=== PATIENT | male | born 1940 | race Caucasian/White ===

== ENCOUNTER 2016-08-04 10:19 | Inpatient (IN) | payer MEDICARE, OTHER ==
[~2016-08-04] VITALS: Ht 177.8 cm; Wt 100.0 kg
[~2016-08-04 10:19] MED LIST: ACET-2047 PO; DABI150C PO; DOCU-144 PO; FER325 PO; FOLI-49 PO; FURO40TA4 PO; GABA100C PO; LISI2.5T59 PO; PANT40TA3 PO; POTA20TA96 PO; RIS1 PO; TAMS-14 PO; TRAM-40 PO
[2016-08-04 10:24] VITALS: Ht 177.8 cm; Wt 100.0 kg
[2016-08-04 10:50] LABS: ADD UMIC YES; URINE BILIRUBIN (Dip) NEGATIVE (NEGATIVE); URINE BLOOD (Dip) 2+ (NEGATIVE); URINE COLOR YELLOW (YELLOW); URINE GLUCOSE (Dip) NEGATIVE (NEGATIVE); URINE KETONES (Dip) NEGATIVE (NEGATIVE); URINE LEUKOCYTE ESTERASE (Dip) 3+ (NEGATIVE); URINE NITRITE (Dip) POSITIVE (NEGATIVE); URINE TOTAL PROTEIN (Dip) NEGATIVE (NEGATIVE); URINE UROBILINOGEN (Dip) 0.2 E.U./dL (0.1-1.0)
[2016-08-04 11:09] LABS: BACTERIA,URINE MODERATE
[2016-08-04] MEDS ORDERED: ASPI81TA3 PO (11:11)
[2016-08-04] MEDS ORDERED: CARV3.1260 PO (11:11)
[2016-08-04] MEDS ORDERED: ASCO500C7 PO (11:11)
[2016-08-04] MEDS ORDERED: CARV6.2579 PO (11:14)
[2016-08-04] MEDS ORDERED: BISA10SU75 PR (11:15)
[2016-08-04] MEDS ORDERED: ENOX40DI2 SC (11:16)
[2016-08-04] MEDS ORDERED: FURO20TA3 PO (11:17)
[2016-08-04] MEDS ORDERED: ISOS30TA5 PO (11:18)
[2016-08-04] MEDS ORDERED: LORA0.5T PO (11:19)
[2016-08-04 11:20] LABS: ADD SCAN DIFF NO
[2016-08-04] MEDS ORDERED: IRON150C PO (11:20)
[2016-08-04] MEDS ORDERED: PROT946L PO (11:23)
[2016-08-04 11:26] LABS: BASOPHILS % 0.2 % (0.0-2.0); EOSINOPHILS # 0.1 10^3/ul (0.0-0.5); EOSINOPHILS % 1.9 % (0.0-7.0); HEMATOCRIT 30.9 % (42.0-52.0); HEMOGLOBIN 9.6 g/dl (14.0-18.0); LYMPHOCYTES # 0.9 10^3/ul (0.8-2.9); LYMPHOCYTES % 16.5 % (15.0-51.0); MEAN CORPUSCULAR HEMOGLOBIN 27.7 pg (29.0-33.0); MEAN CORPUSCULAR HGB CONC 31.1 g/dl (32.0-37.0); MEAN CORPUSCULAR VOLUME 89.3 fl (82.0-101.0); MEAN PLATELET VOLUME 9.9 fl (7.4-10.4); MONOCYTE # 0.6 10^3/ul (0.3-0.9); MONOCYTES % 12.3 % (0.0-11.0); NEUTROPHIL # 3.6 10^3/ul (1.6-7.5); NEUTROPHILS % 68.7 % (39.0-77.0); PLATELET COUNT 245 10^3/UL (140-415); RED BLOOD COUNT 3.46 10^6/ul (4.70-6.10); RED CELL DISTRIBUTION WIDTH 14.8 % (11.5-14.5); WHITE BLOOD COUNT 5.2 10^3/ul (4.8-10.8)
[2016-08-04 11:38] LABS: ALBUMIN 3.5 g/dl (3.3-4.9)
[2016-08-04 11:39] LABS: CHLORIDE 96 mmol/L (97-110); POTASSIUM 4.2 mmol/L (3.5-5.1); SODIUM 133 mmol/L (135-144)
[2016-08-04 11:41] LABS: ASPARTATE AMINO TRANSFERASE 15 IU/L (15-46); BILIRUBIN,INDIRECT 0.3 mg/dl (0-1.1); BILIRUBIN,TOTAL 0.3 mg/dl (0.2-1.3); CARBON DIOXIDE 26 mmol/L (21-31); TOTAL PROTEIN 7.4 g/dl (6.1-8.1)
[2016-08-04 11:42] LABS: ALANINE AMINOTRANSFERASE 17 IU/L (13-69); ALBUMIN/GLOBULIN RATIO 0.89; ALKALINE PHOSPHATASE 83 IU/L (42-121); ANION GAP 15 (8-16); BLOOD UREA NITROGEN 15 mg/dl (7-20); CALCIUM 8.6 mg/dl (8.4-10.2); GLUCOSE 138 mg/dl (70-220)
[2016-08-04 11:54] LABS: B-TYPE NATRIURETIC PEPTIDE 678 PG/ML (0-450); TROPONIN-I < 0.012 ng/ml (0.00-0.12)
[2016-08-04] MEDS ORDERED: CEFEPIME 1GM/50 ML (PMX) 50 ML IVPB ONE (12:00)
--- NOTE | 2016-08-04 12:05 | ERA ---
ER Documentation Chief Complaint Date/Time DATE: 08/04/16 TIME: 12:00 Chief Complaint BIB PARAMEDICS FROM [facility]- LOW SODIUM LEVEL HPI 75-year-old man brought in by EMS from senior living for hyponatremia. Patient has multiple medical conditions including recurrent hyponatremia. It seems patient has become more agitated recently and generally confused. He has had no focal weakness, no fevers or chills, no vomiting or diarrhea. HPI was supplemented by reviewing senior living records, reviewing past medical history, and speaking to EMS. ROS All systems reviewed and are negative except as per history of present illness. Medications Home Meds Reported Medications Protein Supplement (Promod) 946 Ml Liquid, 30 ML PO TID 08/04/16 Iron Polysaccharides Complex (Polysaccharide Iron) 150 Mg Capsule, 150 MG PO DAILY, CAP 08/04/16 Lorazepam* (Lorazepam*) 0.5 Mg Tablet, 0.5 MG PO BID Y for ANXIETY, TAB 08/04/16 Isosorbide Mononitrate* (Isosorbide Mononitrate*) 30 Mg Tab.er.24h, 30 MG PO DAILY, TAB 08/04/16 Furosemide* (Furosemide*) 20 Mg Tablet, 20 MG PO DAILY, #60 TAB 08/04/16 Bisacodyl* (Bisacodyl*) 10 Mg Supp, 10 MG NV Q24H Y for CONSTIPATION, SUPP 08/04/16 Carvedilol* (Carvedilol*) 6.25 Mg Tablet, 6.25 MG PO BID, #60 TAB HOLD IF SBP<110 OR HR<60 08/04/16 Aspirin* (Aspirin* Chew) 81 Mg Tab.chew, 81 MG PO DAILY, TAB.CHEW 08/04/16 Ascorbic Acid* (Vitamin C*) 500 Mg Capsule.sa, 500 MG PO DAILY, CAP 08/04/16 Lisinopril* (Lisinopril*) 2.5 Mg Tablet, 2.5 MG PO DAILY, #30 TAB HOLD IF SBP<110 OR HR<60 03/20/16 Risperidone* (Risperdal*) 1 Mg Tablet, 1.5 MG PO BID, TAB 08/31/15 Pantoprazole* (Protonix*) 40 Mg Tablet.dr, 40 MG PO AC BREAKFAST, TAB 08/31/15 Dabigatran Etexilate Mesylate* (Pradaxa*) 150 Mg Capsule, 150 MG PO BID, CAP 08/31/15 Potassium Chloride* (Potassium Chloride*) 20 Meq Tablet.er, 20 MEQ PO DAILY, TAB.SA 08/31/15 Folic Acid* (Folic Acid*) 1 Mg Tablet, 1 MG PO DAILY, TAB 08/31/15 Tamsulosin Hcl* (Flomax*) 0.4 Mg Cap.er.24h, 0.4 MG PO HS, CAP 08/31/15 Ferrous Sulfate* (Ferrous Sulfate*) 325 Mg Tabec, 325 MG PO BID, TAB 08/31/15 Docusate Sodium* (Colace*) 100 Mg Capsule, 100 MG PO BID Y for CONSTIPATION, # 60 CAP 08/31/15 Acetaminophen* (Acetaminophen*) 650 Mg Tablet, 650 MG PO Q4 Y for PAIN AND OR ELEVATED TEMP, #30 TAB 08/31/15 Discontinued Reported Medications Enoxaparin Sodium* (Enoxaparin Sodium*) 40 Mg/0.4 Ml Syringe, 40 MG SC DAILY, SYR 08/04/16 Carvedilol* (Carvedilol*) 3.125 Mg Tablet, 3.125 MG PO BID, #60 TAB 08/04/16 Furosemide* (Furosemide*) 40 Mg Tablet, 40 MG PO DAILY, TAB 03/20/16 Tramadol Hcl* (Ultram*) 50 Mg Tablet, 50 MG PO Q8, TAB 08/31/15 Gabapentin* (Neurontin*) 100 Mg Capsule, 100 MG PO TID, #90 CAP 08/31/15 Allergies Allergies: Coded Allergies: No Known Allergy (Unverified , 08/04/16) PMhx/Soc Coronary artery disease, atrial fibrillation, anemia, dementia, psychiatric illness, hypertension, congestive heart failure, gastroesophageal reflux disease , recurrent urinary tract infections History of Surgery: No Anesthesia Reaction: No Hx Respiratory Disorders: No Hx Alcohol Use: No Hx Substance Use: No Hx Tobacco Use: No Smoking Status: Never smoker FmHx Family History: No diabetes Physical Exam Vitals Vital Signs Date Time Temp Pulse Resp B/P Pulse Ox O2 Delivery O2 Flow Rate FiO2 08/04/16 13:10 76 19 134/75 98 Room Air 08/04/16 10:24 97.7 77 18 134/75 98 Physical Exam GENERAL: Well-developed, well-nourished, well-hydrated, afebrile, agitated HEENT: Moist mucous membranes, pink conjunctiva, no cervical spine tenderness or step-off deformities, no goiter, no jaundice or icterus, extraocular movements intact without pain. No submandibular induration, and no pharyngeal erythema NEURO: Alert and oriented x 1, pupils equal round reactive to light, no focal deficits or facial asymmetry, able to answer simple questions and follow simple commands. CARDIAC: Regular rate and rhythm, no murmurs rubs or gallops LUNGS: Clear bilaterally no wheezing crackles or stridor ABDOMEN: Soft nontender, no guarding, no rigidity, no rebound, no psoas sign no obturator sign. Normoactive bowel sounds SKIN: Warm and dry to touch, no abrasions, contusions, or hematomas, no lacerations, no ecchymosis, no target lesions, and without ulcers EXTREMITIES: No clubbing cyanosis, 3+ pitting edema in the lower extremities bilaterally calves are bilaterally symmetrical, no Homans sign, no popliteal cord sign. Distal pulses equal and bilateral PSYCH: Demented, agitated Result Diagram: 08/04/16 1105 08/04/16 1105 Results 24 hrs Laboratory Tests Test 08/04/16 10:33 08/04/16 11:05 Urine Color YELLOW Urine Clarity SLIGHTLY CLOUDY Urine pH 7.5 Urine Specific [place]in <=1.005 Urine Ketones NEGATIVE Urine Nitrite POSITIVE Urine Bilirubin NEGATIVE Urine Urobilinogen 0.2 E.U./dL Urine Leukocyte Esterase 3+ Urine Microscopic RBC 5-10/HPF Urine Microscopic WBC 10-25/HPF Urine Bacteria MODERATE Urine Hemoglobin 2+ Urine Glucose NEGATIVE% Urine Total Protein NEGATIVE White Blood Count 5.210^3/ul Red Blood Count 3.4610^6/ul Hemoglobin 9.6g/dl Hematocrit 30.9% Mean Corpuscular Volume 89.3fl Mean Corpuscular Hemoglobin 27.7pg Mean Corpuscular Hemoglobin Concent 31.1g/dl Red Cell Distribution Width 14.8% Platelet Count 01823^3/UL Mean Platelet Volume 9.9fl Neutrophils % 68.7% Lymphocytes % 16.5% Monocytes % 12.3% Eosinophils % 1.9% Basophils % 0.2% Nucleated Red Blood Cells % 0.0/100WBC Neutrophils # 3.610^3/ul Lymphocytes # 0.910^3/ul Monocytes # 0.610^3/ul Eosinophils # 0.110^3/ul Basophils # 0.010^3/ul Nucleated Red Blood Cells # 0.010^3/ul Sodium Level 133mmol/L Potassium Level 4.2mmol/L Chloride Level 96mmol/L Carbon Dioxide Level 26mmol/L Anion Gap 15 Blood Urea Nitrogen 15mg/dl Creatinine 0.80mg/dl Glucose Level 138mg/dl Calcium Level 8.6mg/dl Total Bilirubin 0.3mg/dl Direct Bilirubin 0.00mg/dl Indirect Bilirubin 0.3mg/dl Aspartate Amino Transf (AST/SGOT) 15IU/L Alanine Aminotransferase (ALT/SGPT) 17IU/L Alkaline Phosphatase 83IU/L Troponin I < 0.012ng/ml B-Type Natriuretic Peptide 678PG/ML Total Protein 7.4g/dl Albumin 3.5g/dl Globulin 3.90g/dl Albumin/Globulin Ratio 0.89 Lipase 30U/L Current Medications Medications (Trade) Dose Ordered Sig/Bennie Route PRN Reason Start Time Stop Time Status Last Admin Dose Admin Cefepime HCl (Maxipime 1gm/50 ml (Pmx)) 50 ml @ 100 mls/hr ONCE ONCE IVPB 08/04/16 12:00 08/04/16 12:29 DC 08/04/16 11:56 Procedures/MDM IV line was established patient was placed on campus monitor rhythm strip revealed a wide-complex rhythm at about 70 bpm with upright P and T waves. Patient was afebrile. EKG performed, read by me revealed an atrial fibrillation rate controlled a 72 bpm, normal axis, with a right bundle branch block QRS duration of 182 ms, no concerning ST elevations or depressions noted. One view chest x-ray performed, read by me revealed cardiomegaly and bilateral pulmonary vascular congestion, no acute infiltrates, no pneumothorax. CBC is unremarkable, electrolytes revealed BUN/creatinine 15/0.8, liver function tests are normal, troponin was negative. Urine analysis was positive for infection. I treated him here with cefepime 1 g IV. Patient's mental status has decompensated recently and I suspect it is secondary to an acute urinary tract infection. Patient will require admission for continued IV antibiotics and reevaluation. Departure Diagnosis: Primary Impression: UTI (urinary tract infection) Qualified Code: N30.00 - Acute cystitis without hematuria Additional Impressions: Encephalopathy Peripheral edema Condition: Fair MARVIN LU MD Aug 04, 2016 12:05
--- NOTE | 2016-08-04 12:20 | RADRPT ---
PROCEDURE: Chest Radiograph. CLINICAL INDICATION: Abdominal pain. TECHNIQUE: Single frontal chest radiograph. COMPARISON: Chest radiograph 03/20/2016 FINDINGS: The patient is moderately rotated. The heart is enlarged. Atherosclerotic calcifications are prese nt. Lung volumes are decreased in there is basilar atelectasis and central compressive change. No c onfluent or lobar infiltrate is seen. There is a 4.5 cm rounded opacity in the right medial apex wi th suggested associated tracheal deviation highly concerning for mass. The bones are intact. IMPRESSION: 1. 4.5 cm rounded opacity in the right pulmonary apex suggesting mass. Recommend further evaluatio n with CT chest. 2. Low lung volumes with basilar atelectasis. 3. Cardiomegaly and atherosclerotic vascular disease. RPTAT: KK .Arnol Banegas MD, MD Date Time Electronically viewed and signed by .Arnol Banegas MD, MD on 08/04/2016 12:20 .B/
[2016-08-04 14:46] VITALS: BP 122/69; PULSE 78; RESP 16
[2016-08-04] MEDS ORDERED: GABA100C PO (15:26)
[2016-08-04] MEDS ORDERED: NIF150 PO (15:27)
[2016-08-04] MEDS ORDERED: DOCUSATE SODIUM 100 MG CAP PO PRN (16:00)
[2016-08-04] MEDS ORDERED: BISACODYL 10 MG SUPP PR PRN (16:00)
[2016-08-04] MEDS: CEFTRIAXONE 1 GM/50 ML (PMX) 50 ML IVPB SCH (16:18)
[2016-08-04] MEDS ORDERED: LORAZEPAM 2 MG INJ IV PRN (16:30)
[2016-08-04] MEDS ORDERED: ACETAMINOPHEN 500 MG TAB PO PRN (16:30)
[2016-08-04] MEDS: FERROUS SULFATE (EC) 325 MG TAB PO SCH (22:46)
[2016-08-04] MEDS: GABAPENTIN 100 MG CAP PO SCH (22:46)
[2016-08-04] MEDS: TAMSULOSIN (SR) 0.4 MG CAP PO SCH (22:46)
[2016-08-04] MEDS: RISPERIDONE 1 MG TAB PO SCH (22:47)
[2016-08-04] MEDS: DABIGATRAN 150 MG CAP PO SCH (22:51)
[2016-08-05] MEDS: PANTOPRAZOLE (EC) 40 MG TAB PO SCH (07:30)
[2016-08-05 08:04] VITALS: BP 126/68; RESP 20
[2016-08-05] MEDS: LISINOPRIL 5 MG TAB PO SCH (08:28)
[2016-08-05] MEDS: FERROUS SULFATE (EC) 325 MG TAB PO SCH ×2 (08:28→22:30)
[2016-08-05] MEDS: DABIGATRAN 150 MG CAP PO SCH ×2 (08:28→22:30)
[2016-08-05] MEDS: GABAPENTIN 100 MG CAP PO SCH ×3 (08:28→22:30)
[2016-08-05] MEDS: RISPERIDONE 1 MG TAB PO SCH ×2 (08:28→22:30)
--- NOTE | 2016-08-05 09:11 | HP ---
DATE OF ADMISSION: 08/04/2016 CHIEF COMPLAINT AND HISTORY OF PRESENT ILLNESS: The patient is a 75-year-old gentleman with a histo ry of coronary artery disease, chronic atrial fibrillation, inguinal scrotal hernia, hypertension, b ipolar disorder, chronic congestive heart failure, a history of ureteral stricture. The patient als o has a history of benign prostatic hypertrophy. The patient was sent from a convalescent home due to altered mental status. The patient appeared confused. The patient recently had a sodium of 127 at the convalescent home. The patient did not have any seizure, no reported vomiting, no reported c hest congestion. The patient did not have any headache. No reported focal weakness. Patient was a wake and alert; however, was more agitated and confused. The patient underwent multiple diagnostic studies in the ER including labs. Sodium, however, came back as 133. The patient also was noted to be anemic, with a hemoglobin of 9.6. There was no history of bleeding. Urine was suggestive of a urinary tract infection, with 3+ leukocyte esterase, 10 to 25 WBCs, and positive nitrites. The jonatan ent is being admitted for further evaluation and management. REVIEW OF SYSTEMS: Twelve systems were reviewed, all pertinent positive and negative findings are d escribed in the HPI. In addition, the patient did not have any chest congestion. The patient was b reathing comfortably. There is no leg edema. Patient did not complain of pain or inguinal scrotal swelling. The patient denied any abdominal pain and no flank pain. The rest of the review of syste ms were unremarkable. PAST MEDICAL HISTORY: As stated above. In addition, the patient was seen by Dr. Morales from a uro logy standpoint due to urethral stricture and also by Dr. Wilkerson. Patient, however, refused surgica l intervention of his large inguinal scrotal swelling. PAST SURGICAL HISTORY: Could not be obtained. SOCIAL HISTORY: The patient is a resident of a [facility] facility. No smoking, no alcohol. ALLERGIES: NONE. MEDICATIONS: List revealed the patient to be on: 1. Flomax. 2. . 3. Lisinopril. 4. Gabapentin. 5. Risperdal. 6. Lasix. 7. Potassium. 8. Protonix. FAMILY HISTORY: Noncontributory to the patient's condition. PHYSICAL EXAMINATION: GENERAL: The patient is conscious, awake, alert, oriented x1. VITAL SIGNS: Temperature 97.5, pulse 78, respirations 16, blood pressure 122/69, O2 saturation 100% on room air. HEENT: Atraumatic, normocephalic. Conjunctivae and lids are normal. Oropharynx is clear. NECK: No mass or thyromegaly. CHEST: Revealed a 4.5-cm round in the right pulmonary apex, suggesting a mass. HEART: Irregular rhythm. Variable S1. No murmur. ABDOMEN: Soft, nondistended, nontender. Large right inguinal hernia present, nontender. No change in color. SKIN: No change in temperature. IMPRESSION: 1. Acute encephalopathy, possibly due to a urinary tract infection. 2. Lung mass. 3. Coronary artery disease. 4. Chronic atrial fibrillation. 5. Benign prostatic hypertrophy. 6. Urethral stricture. 7. Bipolar disorder. 8. Preserved LV function. The patient's echo revealed an EF of 60% back in 2016. 9. Hyponatremia. PLAN: Patient is admitted on the medical floor. Patient will be started on IV Rocephin. He will b e continued on lisinopril for hypertension, Pradaxa for prophylaxis. The patient's heart rate is controlled. Will continue to monitor. Patient will be continued on Risperdal for bipolar disor gino, as well as Augmentin. Will continue Flomax for BPH. Will hold off on Lasix. Will order a CT of the chest without contrast to further assess the lung mass. Further recommendations will depend on the patient's hospital course. Will do a followup basic meta bolic panel. The patient's hyponatremia could be related to Lasix or could be due to lung malignancy . Will continue to follow closely and order appropriate workup as needed. Plan of care discussed with ER physician, Dr. Spence, as well as the nursing staff. Dictated By: DAT ORDONEZ/TERRELL Conf#: [id number] DID#: [id number]
[2016-08-05 11:12] LABS: ADD SCAN DIFF NO
[2016-08-05 11:15] LABS: BASOPHILS % 0.4 % (0.0-2.0); EOSINOPHILS # 0.1 10^3/ul (0.0-0.5); EOSINOPHILS % 2.4 % (0.0-7.0); HEMATOCRIT 32.8 % (42.0-52.0); HEMOGLOBIN 10.3 g/dl (14.0-18.0); LYMPHOCYTES # 0.7 10^3/ul (0.8-2.9); LYMPHOCYTES % 13.8 % (15.0-51.0); MEAN CORPUSCULAR HEMOGLOBIN 28.1 pg (29.0-33.0); MEAN CORPUSCULAR HGB CONC 31.4 g/dl (32.0-37.0); MEAN CORPUSCULAR VOLUME 89.4 fl (82.0-101.0); MONOCYTE # 0.6 10^3/ul (0.3-0.9); MONOCYTES % 11.4 % (0.0-11.0); NEUTROPHIL # 3.7 10^3/ul (1.6-7.5); NEUTROPHILS % 71.6 % (39.0-77.0); PLATELET COUNT 247 10^3/UL (140-415); RED BLOOD COUNT 3.67 10^6/ul (4.70-6.10); RED CELL DISTRIBUTION WIDTH 14.7 % (11.5-14.5); WHITE BLOOD COUNT 5.1 10^3/ul (4.8-10.8)
[2016-08-05 11:26] LABS: POTASSIUM 3.9 mmol/L (3.5-5.1)
[2016-08-05 11:29] LABS: CALCIUM 8.8 mg/dl (8.4-10.2); CREATININE 0.79 mg/dl (0.61-1.24)
--- NOTE | 2016-08-05 12:38 | PN ---
Date/Time of Note Date/Time of Note DATE: 08/05/16 TIME: 12:37 Assessment/Plan VTE Prophylaxis VTE Prophylaxis Intervention: other Lines/Catheters IV [facility]from [facility]): Saline Lock Urinary Cath still in place: No Assessment/Plan Chief Complaint/Hosp Course 1. Acute encephalopathy, possibly due to a urinary tract infection. 2. Lung mass. 3. Coronary artery disease. 4. Chronic atrial fibrillation. 5. Benign prostatic hypertrophy. 6. Urethral stricture. 7. Bipolar disorder. 8. Preserved LV function. The patient's echo revealed an EF of 60% back in 2016. 9. Hyponatremia. Problems: Subjective 24 Hr Interval Summary Free Text/Dictation Patient refusing treatment Exam/Review of Systems Vital Signs Vitals Vital Signs Date Time Temp Pulse Resp B/P Pulse Ox O2 Delivery O2 Flow Rate FiO2 08/05/16 08:04 94 20 126/68 99 08/04/16 14:46 97.5 Room Air Intake and Output 08/04/16 08/04/16 08/05/16 15:00 23:00 07:00 Intake Total 290 ml 120 ml Output Total 400 ml 600 ml Balance -110 ml -480 ml Exam Constitutional: well developed Head: atraumatic, normocephalic Neck: supple Respiratory: diminished breath sounds Cardiovascular: regular rate and rhythm Gastrointestinal: non-tender, soft Extremities: normal pulses Results Result Diagram: 08/05/16 1056 08/05/16 1056 Results 24 hrs Laboratory Tests Test 08/05/16 10:56 White Blood Count 5.1 Red Blood Count 3.67 L Hemoglobin 10.3 L Hematocrit 32.8 L Mean Corpuscular Volume 89.4 Mean Corpuscular Hemoglobin 28.1 L Mean Corpuscular Hemoglobin Concent 31.4 L Red Cell Distribution Width 14.7 H Platelet Count 247 Mean Platelet Volume 10.0 Neutrophils % 71.6 Lymphocytes % 13.8 L Monocytes % 11.4 H Eosinophils % 2.4 Basophils % 0.4 Nucleated Red Blood Cells % 0.0 Neutrophils # 3.7 Lymphocytes # 0.7 L Monocytes # 0.6 Eosinophils # 0.1 Basophils # 0.0 Nucleated Red Blood Cells # 0.0 Sodium Level 135 Potassium Level 3.9 Chloride Level 98 Carbon Dioxide Level 28 Anion Gap 13 Blood Urea Nitrogen 13 Creatinine 0.79 Glucose Level 101 Calcium Level 8.8 Medications Medications Current Medications Bisacodyl (Dulcolax Supp) 10 mg Q24H PRN [place] CONSTIPATION; Start 08/04/16 at 16: 00 Dabigatran (PRADaxa) 150 mg BID PO Last administered on 08/04/16 22:51; Admin Dose 150 MG; Start 08/04/16 at 21:00 Docusate Sodium (Colace) 100 mg BID PRN PO CONSTIPATION; Start 08/04/16 at 16: 00 Ferrous Sulfate (Ferrous Sulfate (Ec)) 325 mg BID PO Last administered on 22:46; Admin Dose 325 MG; Start 08/04/16 at 21:00 Gabapentin (Neurontin) 100 mg TID PO Last administered on 08/04/16 22:46; Admin Dose 100 MG; Start 08/04/16 at 21:00 Lisinopril (Zestril) 2.5 mg DAILY PO ; Start 08/05/16 at 09:00 Risperidone (Risperdal) 1.5 mg BID PO Last administered on 08/04/16 22:47; Admin Dose 1.5 MG; Start 08/04/16 at 21:00 Tamsulosin HCl (Flomax) 0.4 mg HS PO Last administered on 08/04/16 22:46; Admin Dose 0.4 MG; Start 08/04/16 at 21:00 Lorazepam 0.5 mg 0.5 mg Q6H PRN IV ANXIETY; Start 08/04/16 at 16:30 Ceftriaxone Sodium (Rocephin) 50 ml @ 100 mls/hr Q24H IVPB Last administered on 08/04/16 16:18; Admin Dose 100 MLS/HR; Start 08/04/16 at 16:30 Acetaminophen (Tylenol Tab) 500 mg Q4H PRN PO PAIN AND OR ELEVATED TEMP; Start 08/04/16 at 16:30 EUGENIO SANTANA Aug 05, 2016 12:38
[2016-08-05] MEDS: CEFTRIAXONE 1 GM/50 ML (PMX) 50 ML IVPB SCH (15:38)
[2016-08-05 22:11] VITALS: BP 135/82; RESP 18
[2016-08-05] MEDS: TAMSULOSIN (SR) 0.4 MG CAP PO SCH (22:30)
[2016-08-06] MEDS: PANTOPRAZOLE (EC) 40 MG TAB PO SCH (06:37)
[2016-08-06 07:42] VITALS: BP 140/80; RESP 16
--- NOTE | 2016-08-06 08:26 | RADRPT ---
AMENDMENT: 08/06/2016 8:43:57 AM Kenneth Zamorano M.d Impression: 5. Fusiform dilatation of the ascending aorta. PROCEDURE: CT Chest. CLINICAL INDICATION: Dyspnea and shortness of breath possible lung mass TECHNIQUE: CT scan of the chest without contrast was performed on the [employer] volumetric [address] [facility] without contrast. Coronal and sagittal reformatted images were obtained from the axial source images. The CTDI vol is 15.59 mGy and the DLP is 641.81 mGy-cm. COMPARISON: Chest x-ray from 08/04/2016 FINDINGS: Suggestion of mild diffuse interlobular septal thickening is seen. A trace right pleural effusion i s seen with bibasilar atelectasis. No dense consolidation is seen. The mediastinum and hilum are u nremarkable without evidence for mass or lymphadenopathy. Aortic and coronary vascular calcificatio ns are seen. The ascending aorta is enlarged measuring 5.3 x 5.1 cm in size. Prominence of the brac hiocephalic trunk is seen. The heart size is mild to moderately enlarged with multichamber enlargeme nt and is without evidence for pericardial thickening or effusion. The axillary regions, subpectora l regions, and supraclavicular regions are all unremarkable. Imaging obtained through the upper abd omen reveals no acute abnormality. Diffuse osteopenia is seen. Degenerative spondylosis of the thor acic spine is seen. No osteolytic or osteoblastic lesion is detected. IMPRESSION: 1. Prominent brachiocephalic trunk which may represent the right apical opacity seen on the chest x -ray from 08/04/2016. 2. Suggestion of interlobular septal thickening which may represent interstitial pulmonary edema. 3. Trace right pleural effusion with bibasilar atelectasis. 4. Mild to moderate cardiomegaly with multichamber enlargement. RPTAT: HPNM Physician Carol Date Time Electronically viewed and signed by Physician Carol on 08/06/2016 08:43 /
[2016-08-06] MEDS: FERROUS SULFATE (EC) 325 MG TAB PO SCH ×2 (09:16→22:32)
[2016-08-06] MEDS: RISPERIDONE 1 MG TAB PO SCH ×2 (09:17→22:33)
[2016-08-06] MEDS: DABIGATRAN 150 MG CAP PO SCH ×2 (09:17→22:31)
[2016-08-06] MEDS: GABAPENTIN 100 MG CAP PO SCH ×3 (09:17→22:32)
[2016-08-06] MEDS: LISINOPRIL 5 MG TAB PO SCH (09:18)
--- NOTE | 2016-08-06 13:18 | PN ---
Date/Time of Note Date/Time of Note DATE: 08/06/16 TIME: 13:18 Assessment/Plan VTE Prophylaxis VTE Prophylaxis Intervention: other Lines/Catheters IV [facility] Saline Lock Urinary Cath still in place: No Assessment/Plan Chief Complaint/Hosp Course 1. Acute encephalopathy, possibly due to a urinary tract infection. 2. Lung mass. 3. Coronary artery disease. 4. Chronic atrial fibrillation. 5. Benign prostatic hypertrophy. 6. Urethral stricture. 7. Bipolar disorder. 8. Preserved LV function. The patient's echo revealed an EF of 60% back in 2016. 9. Hyponatremia. Problems: Subjective 24 Hr Interval Summary Free Text/Dictation Patient is resting comfortably Exam/Review of Systems Vital Signs Vitals Vital Signs Date Time Temp Pulse Resp B/P Pulse Ox O2 Delivery O2 Flow Rate FiO2 08/06/16 07:42 98.6 84 16 140/80 96 08/04/16 14:46 Room Air Intake and Output 08/05/16 08/05/16 08/06/16 15:00 23:00 07:00 Intake Total 780 ml 100 ml Balance 780 ml 100 ml Exam Constitutional: well developed Head: atraumatic, normocephalic Neck: supple Respiratory: clear to auscultation Cardiovascular: regular rate and rhythm Gastrointestinal: non-tender, soft Extremities: normal pulses Results Result Diagram: 08/05/16 1056 08/05/16 1056 Medications Medications Current Medications Bisacodyl (Dulcolax Supp) 10 mg Q24H PRN [place] CONSTIPATION; Start 08/04/16 at 16: 00 Dabigatran (PRADaxa) 150 mg BID PO Last administered on 08/06/16 09:17; Admin Dose 150 MG; Start 08/04/16 at 21:00 Docusate Sodium (Colace) 100 mg BID PRN PO CONSTIPATION; Start 08/04/16 at 16: 00 Ferrous Sulfate (Ferrous Sulfate (Ec)) 325 mg BID PO Last administered on 09:16; Admin Dose 325 MG; Start 08/04/16 at 21:00 Gabapentin (Neurontin) 100 mg TID PO Last administered on 08/06/16 12:46; Admin Dose 100 MG; Start 08/04/16 at 21:00 Lisinopril (Zestril) 2.5 mg DAILY PO Last administered on 08/06/16 09:18; Admin Dose 2.5 MG; Start 08/05/16 at 09:00 Risperidone (Risperdal) 1.5 mg BID PO Last administered on 08/06/16 09:17; Admin Dose 1.5 MG; Start 08/04/16 at 21:00 Tamsulosin HCl (Flomax) 0.4 mg HS PO Last administered on 08/05/16 22:30; Admin Dose 0.4 MG; Start 08/04/16 at 21:00 Lorazepam 0.5 mg 0.5 mg Q6H PRN IV ANXIETY; Start 08/04/16 at 16:30 Ceftriaxone Sodium (Rocephin) 50 ml @ 100 mls/hr Q24H IVPB Last administered on 08/04/16 16:18; Admin Dose 100 MLS/HR; Start 08/04/16 at 16:30 Acetaminophen (Tylenol Tab) 500 mg Q4H PRN PO PAIN AND OR ELEVATED TEMP; Start 08/04/16 at 16:30 EUGENIO SANTANA Aug 06, 2016 13:18
[2016-08-06] MEDS: CEFTRIAXONE 1 GM/50 ML (PMX) 50 ML IVPB SCH (17:30)
[2016-08-06 21:58] VITALS: BP 130/91; RESP 18
[2016-08-06] MEDS: TAMSULOSIN (SR) 0.4 MG CAP PO SCH (22:31)
[2016-08-07 07:20] VITALS: BP 144/84; RESP 16
[2016-08-07] MEDS: PANTOPRAZOLE (EC) 40 MG TAB PO SCH (09:16)
[2016-08-07] MEDS: DABIGATRAN 150 MG CAP PO SCH ×2 (09:17→21:32)
[2016-08-07] MEDS: FERROUS SULFATE (EC) 325 MG TAB PO SCH ×2 (09:17→21:32)
[2016-08-07] MEDS: GABAPENTIN 100 MG CAP PO SCH ×3 (09:17→21:38)
[2016-08-07] MEDS: LISINOPRIL 5 MG TAB PO SCH (09:17)
[2016-08-07] MEDS: RISPERIDONE 1 MG TAB PO SCH ×2 (09:17→21:32)
[2016-08-07] MEDS: CEFTRIAXONE 1 GM/50 ML (PMX) 50 ML IVPB SCH (16:30)
--- NOTE | 2016-08-07 19:05 | PN ---
Date/Time of Note Date/Time of Note DATE: 08/07/16 TIME: 19:02 Assessment/Plan VTE Prophylaxis VTE Prophylaxis Intervention: SCD's Lines/Catheters IV [facility]from [facility] Saline Lock Urinary Cath still in place: No Assessment/Plan Chief Complaint/Hosp Course Assessment and plan: - Acute encephalopathy, possibly due to a urinary tract infection, resolving. - UTI per UA, continue Rocephin. - Lung mass. - Coronary artery disease. - Chronic atrial fibrillation. Continue Pradaxa. - Benign prostatic hypertrophy. - Urethral stricture. - Bipolar disorder. - Large inguinal scrotal hernia. Problems: Subjective 24 Hr Interval Summary Free Text/Dictation Patient is awake alert, denies any fever denies chest pain. Exam/Review of Systems Vital Signs Vitals Vital Signs Date Time Temp Pulse Resp B/P Pulse Ox O2 Delivery O2 Flow Rate FiO2 08/07/16 07:20 98.7 86 16 144/84 96 08/04/16 14:46 Room Air Intake and Output 08/06/16 08/06/16 08/07/16 15:00 23:00 07:00 Intake Total 800 ml Balance 800 ml Exam Constitutional: alert, oriented Psych: no complaints Head: atraumatic, normocephalic Eyes: nl conjunctiva ENMT: nl external ears & nose Neck: non-tender, supple Respiratory: clear to auscultation, normal air movement Cardiovascular: irregular rhythm Gastrointestinal: non-tender, soft Genitourinary - Male: other (Large inguinal hernia) Musculoskeletal: nl extremities to inspection Extremities: normal pulses Neurological: DEEP 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 Results Result Diagram: 08/05/16 1056 08/05/16 1056 Medications Medications Current Medications Bisacodyl (Dulcolax Supp) 10 mg Q24H PRN [place] CONSTIPATION; Start 08/04/16 at 16: 00 Dabigatran (PRADaxa) 150 mg BID PO Last administered on 08/07/16 09:17; Admin Dose 150 MG; Start 08/04/16 at 21:00 Docusate Sodium (Colace) 100 mg BID PRN PO CONSTIPATION; Start 08/04/16 at 16: 00 Ferrous Sulfate (Ferrous Sulfate (Ec)) 325 mg BID PO Last administered on 09:17; Admin Dose 325 MG; Start 08/04/16 at 21:00 Gabapentin (Neurontin) 100 mg TID PO Last administered on 08/07/16 09:17; Admin Dose 100 MG; Start 08/04/16 at 21:00 Lisinopril (Zestril) 2.5 mg DAILY PO Last administered on 08/07/16 09:17; Admin Dose 2.5 MG; Start 08/05/16 at 09:00 Risperidone (Risperdal) 1.5 mg BID PO Last administered on 08/07/16 09:17; Admin Dose 1.5 MG; Start 08/04/16 at 21:00 Tamsulosin HCl (Flomax) 0.4 mg HS PO Last administered on 08/06/16 22:31; Admin Dose 0.4 MG; Start 08/04/16 at 21:00 Lorazepam 0.5 mg 0.5 mg Q6H PRN IV ANXIETY; Start 08/04/16 at 16:30 Ceftriaxone Sodium (Rocephin) 50 ml @ 100 mls/hr Q24H IVPB Last administered on 08/04/16 16:18; Admin Dose 100 MLS/HR; Start 08/04/16 at 16:30 Acetaminophen (Tylenol Tab) 500 mg Q4H PRN PO PAIN AND OR ELEVATED TEMP; Start 08/04/16 at 16:30 SONU MCCAIN Aug 07, 2016 19:05 SONU MCCAIN Aug 07, 2016 19:05
[2016-08-07 20:11] VITALS: BP 142/94; RESP 18
[2016-08-07] MEDS: TAMSULOSIN (SR) 0.4 MG CAP PO SCH (21:32)
[2016-08-08 07:46] VITALS: BP 139/83; RESP 18
[2016-08-08] MEDS: FERROUS SULFATE (EC) 325 MG TAB PO SCH ×2 (10:23→21:11)
[2016-08-08] MEDS: RISPERIDONE 1 MG TAB PO SCH ×2 (10:23→21:10)
[2016-08-08] MEDS: PANTOPRAZOLE (EC) 40 MG TAB PO SCH (10:23)
[2016-08-08] MEDS: GABAPENTIN 100 MG CAP PO SCH ×3 (10:23→21:10)
[2016-08-08] MEDS: DABIGATRAN 150 MG CAP PO SCH ×2 (10:23→21:11)
[2016-08-08] MEDS: LISINOPRIL 5 MG TAB PO SCH (10:24)
--- NOTE | 2016-08-08 12:29 | PN ---
Date/Time of Note Date/Time of Note DATE: 08/08/16 TIME: 12:28 Assessment/Plan VTE Prophylaxis VTE Prophylaxis Intervention: SCD's Lines/Catheters IV Catheter Type (from [facility]): [facility] Lock Urinary Cath still in place: No Assessment/Plan Chief Complaint/Hosp Course Assessment and plan: - Acute encephalopathy, possibly due to a urinary tract infection, resolving. - UTI per UA, continue Rocephin. - Lung mass. - Coronary artery disease. - Chronic atrial fibrillation. Continue Pradaxa. - Benign prostatic hypertrophy. - Urethral stricture. - Bipolar disorder. - Large inguinal scrotal hernia. Problems: Exam/Review of Systems Vital Signs Vitals Vital Signs Date Time Temp Pulse Resp B/P Pulse Ox O2 Delivery O2 Flow Rate FiO2 08/08/16 07:46 98.1 73 18 139/83 97 08/04/16 14:46 Room Air Intake and Output 08/07/16 08/07/16 08/08/16 15:00 23:00 07:00 Intake Total 200 ml 750 ml 250 ml Output Total 900 ml Balance 200 ml -150 ml 250 ml Exam Constitutional: alert, oriented Psych: no complaints Head: atraumatic, normocephalic Eyes: nl conjunctiva ENMT: nl external ears & nose Neck: non-tender, supple Respiratory: clear to auscultation, normal air movement Cardiovascular: irregular rhythm Gastrointestinal: non-tender, soft Genitourinary - Male: other (Large inguinal hernia) Musculoskeletal: nl extremities to inspection Extremities: normal pulses Neurological: RESPIRATORY CARE FACULTY II-XII intact Results Result Diagram: 08/05/16 1056 08/05/16 1056 Medications Medications Current Medications Bisacodyl (Dulcolax Supp) 10 mg Q24H PRN [place] CONSTIPATION; Start 08/04/16 at 16: 00 Dabigatran (PRADaxa) 150 mg BID PO Last administered on 08/08/16 10:23; Admin Dose 150 MG; Start 08/04/16 at 21:00 Docusate Sodium (Colace) 100 mg BID PRN PO CONSTIPATION; Start 08/04/16 at 16: 00 Ferrous Sulfate (Ferrous Sulfate (Ec)) 325 mg BID PO Last administered on 10:23; Admin Dose 325 MG; Start 08/04/16 at 21:00 Gabapentin (Neurontin) 100 mg TID PO Last administered on 08/08/16 10:23; Admin Dose 100 MG; Start 08/04/16 at 21:00 Lisinopril (Zestril) 2.5 mg DAILY PO Last administered on 08/08/16 10:24; Admin Dose 2.5 MG; Start 08/05/16 at 09:00 Risperidone (Risperdal) 1.5 mg BID PO Last administered on 08/08/16 10:23; Admin Dose 1.5 MG; Start 08/04/16 at 21:00 Tamsulosin HCl (Flomax) 0.4 mg HS PO Last administered on 08/07/16 21:32; Admin Dose 0.4 MG; Start 08/04/16 at 21:00 Lorazepam 0.5 mg 0.5 mg Q6H PRN IV ANXIETY; Start 08/04/16 at 16:30 Ceftriaxone Sodium (Rocephin) 50 ml @ 100 mls/hr Q24H IVPB Last administered on 08/04/16 16:18; Admin Dose 100 MLS/HR; Start 08/04/16 at 16:30 Acetaminophen (Tylenol Tab) 500 mg Q4H PRN PO PAIN AND OR ELEVATED TEMP; Start 08/04/16 at 16:30 SONU MCCAIN Aug 08, 2016 12:29
[2016-08-08] MEDS: CEFTRIAXONE 1 GM/50 ML (PMX) 50 ML IVPB SCH (14:51)
[2016-08-08] MEDS: TAMSULOSIN (SR) 0.4 MG CAP PO SCH (21:10)
[2016-08-08 23:06] VITALS: BP 128/88; RESP 18
[2016-08-09 07:20] VITALS: BP 145/79; RESP 20
[2016-08-09] MEDS: GABAPENTIN 100 MG CAP PO SCH ×3 (09:36→23:40)
[2016-08-09] MEDS: FERROUS SULFATE (EC) 325 MG TAB PO SCH ×2 (09:36→23:39)
[2016-08-09] MEDS: RISPERIDONE 1 MG TAB PO SCH ×2 (09:36→23:40)
[2016-08-09] MEDS: PANTOPRAZOLE (EC) 40 MG TAB PO SCH (09:36)
[2016-08-09] MEDS: DABIGATRAN 150 MG CAP PO SCH ×2 (09:36→23:40)
[2016-08-09] MEDS: LISINOPRIL 5 MG TAB PO SCH (09:37)
[2016-08-09] MEDS: CEFTRIAXONE 1 GM/50 ML (PMX) 50 ML IVPB SCH (16:30)
[2016-08-09] MEDS ORDERED: POLYETHYLENE GLYCOL 17 GM PACKET PO PRN (16:30)
--- NOTE | 2016-08-09 19:57 | PN ---
Date/Time of Note Date/Time of Note DATE: 08/09/16 TIME: 19:56 Assessment/Plan VTE Prophylaxis VTE Prophylaxis Intervention: SCD's Lines/Catheters IV Catheter Type (from Nrs): NO IV ACCESS Urinary Cath still in place: No Assessment/Plan Chief Complaint/Hosp Course Assessment and plan: - Acute encephalopathy, possibly due to a urinary tract infection, resolving. - UTI per UA, continue Levaquin. - Lung mass. - Coronary artery disease. - Chronic atrial fibrillation. Continue Pradaxa. - Benign prostatic hypertrophy. - Urethral stricture. - Bipolar disorder. - Large inguinal scrotal hernia. Further recommendations based on clinical course. Plan of care discussed with Dr. López. Problems: Subjective 24 Hr Interval Summary Free Text/Dictation Remains hemodynamically stable, able to void. Exam/Review of Systems Vital Signs Vitals Vital Signs Date Time Temp Pulse Resp B/P Pulse Ox O2 Delivery O2 Flow Rate FiO2 08/09/16 07:20 97.8 79 20 145/79 96 Intake and Output 08/08/16 08/08/16 08/09/16 15:00 23:00 07:00 Intake Total 1560 ml 600 ml Balance 1560 ml 600 ml Exam Constitutional: alert, oriented Psych: no complaints Head: atraumatic, normocephalic Eyes: nl conjunctiva ENMT: nl external ears & nose Neck: non-tender, supple Respiratory: clear to auscultation, normal air movement Cardiovascular: irregular rhythm Gastrointestinal: non-tender, soft Genitourinary - Male: other (Large inguinal hernia) Musculoskeletal: nl extremities to inspection Extremities: normal pulses 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 Results Result Diagram: 08/05/16 1056 08/05/16 1056 Medications Medications Current Medications Bisacodyl (Dulcolax Supp) 10 mg Q24H PRN [place] CONSTIPATION; Start 08/04/16 at 16: 00 Dabigatran (PRADaxa) 150 mg BID PO Last administered on 08/09/16 09:36; Admin Dose 150 MG; Start 08/04/16 at 21:00 Docusate Sodium (Colace) 100 mg BID PRN PO CONSTIPATION; Start 08/04/16 at 16: 00 Ferrous Sulfate (Ferrous Sulfate (Ec)) 325 mg BID PO Last administered on 09:36; Admin Dose 325 MG; Start 08/04/16 at 21:00 Gabapentin (Neurontin) 100 mg TID PO Last administered on 08/09/16 09:36; Admin Dose 100 MG; Start 08/04/16 at 21:00 Lisinopril (Zestril) 2.5 mg DAILY PO Last administered on 08/09/16 09:37; Admin Dose 2.5 MG; Start 08/05/16 at 09:00 Risperidone (Risperdal) 1.5 mg BID PO Last administered on 08/09/16 09:36; Admin Dose 1.5 MG; Start 08/04/16 at 21:00 Tamsulosin HCl (Flomax) 0.4 mg HS PO Last administered on 08/08/16 21:10; Admin Dose 0.4 MG; Start 08/04/16 at 21:00 Lorazepam 0.5 mg 0.5 mg Q6H PRN IV ANXIETY; Start 08/04/16 at 16:30 Ceftriaxone Sodium (Rocephin) 50 ml @ 100 mls/hr Q24H IVPB Last administered on 08/04/16 16:18; Admin Dose 100 MLS/HR; Start 08/04/16 at 16:30 Acetaminophen (Tylenol Tab) 500 mg Q4H PRN PO PAIN AND OR ELEVATED TEMP; Start 08/04/16 at 16:30 Polyethylene Glycol (Miralax) 17 gm DAILY PRN PO CONSTIPATION; Start 08/09/16 at 16:30 Docusate Sodium (Colace) 100 mg BID PO ; Start 08/09/16 at 21:00 SONU MCCAIN Aug 09, 2016 19:57
[2016-08-09] MEDS: DOCUSATE SODIUM 100 MG CAP PO SCH (21:00)
[2016-08-09 22:47] VITALS: BP 154/82; PULSE 88
[2016-08-09] MEDS: TAMSULOSIN (SR) 0.4 MG CAP PO SCH (23:40)
[2016-08-10 05:58] LABS: ADD SCAN DIFF NO
[2016-08-10 06:13] LABS: CALCIUM 8.6 mg/dl (8.4-10.2); CREATININE 0.84 mg/dl (0.61-1.24); POTASSIUM 4.2 mmol/L (3.5-5.1)
[2016-08-10 06:21] LABS: BASOPHILS % 0.4 % (0.0-2.0); EOSINOPHILS # 0.2 10^3/ul (0.0-0.5); EOSINOPHILS % 4.3 % (0.0-7.0); HEMATOCRIT 31.1 % (42.0-52.0); HEMOGLOBIN 9.7 g/dl (14.0-18.0); LYMPHOCYTES % 22.9 % (15.0-51.0); MEAN CORPUSCULAR HEMOGLOBIN 28.1 pg (29.0-33.0); MEAN CORPUSCULAR HGB CONC 31.2 g/dl (32.0-37.0); MEAN CORPUSCULAR VOLUME 90.1 fl (82.0-101.0); MEAN PLATELET VOLUME 10.3 fl (7.4-10.4); MONOCYTE # 0.6 10^3/ul (0.3-0.9); MONOCYTES % 13.7 % (0.0-11.0); NEUTROPHIL # 2.6 10^3/ul (1.6-7.5); NEUTROPHILS % 58.5 % (39.0-77.0); PLATELET COUNT 228 10^3/UL (140-415); RED BLOOD COUNT 3.45 10^6/ul (4.70-6.10); RED CELL DISTRIBUTION WIDTH 14.8 % (11.5-14.5); WHITE BLOOD COUNT 4.5 10^3/ul (4.8-10.8)
[2016-08-10] MEDS: LEVOFLOXACIN 500 MG TAB PO SCH (06:25)
[2016-08-10] MEDS: PANTOPRAZOLE (EC) 40 MG TAB PO SCH (06:25)
[2016-08-10 07:45] VITALS: BP 140/88; RESP 18
[2016-08-10] MEDS: DOCUSATE SODIUM 100 MG CAP PO SCH ×2 (09:00→22:19)
[2016-08-10] MEDS: RISPERIDONE 1 MG TAB PO SCH ×2 (09:55→22:23)
[2016-08-10] MEDS: FERROUS SULFATE (EC) 325 MG TAB PO SCH ×2 (09:55→22:23)
[2016-08-10] MEDS: DABIGATRAN 150 MG CAP PO SCH ×2 (09:55→22:23)
[2016-08-10] MEDS: GABAPENTIN 100 MG CAP PO SCH ×3 (09:55→22:19)
[2016-08-10] MEDS: LISINOPRIL 5 MG TAB PO SCH (09:56)
[2016-08-10] MEDS: CEFTRIAXONE 1 GM/50 ML (PMX) 50 ML IVPB SCH (16:21)
--- NOTE | 2016-08-10 18:07 | PN ---
Date/Time of Note Date/Time of Note DATE: 08/10/16 TIME: 18:03 Assessment/Plan VTE Prophylaxis VTE Prophylaxis Intervention: other Lines/Catheters IV Catheter Type (from Nrs): NO IV access Urinary Cath still in place: No Assessment/Plan Assessment/Plan - Acute encephalopathy, possibly due to a urinary tract infection, resolving. - UTI -continue Levaquin.Rocephin - Hx Lung mass. - Hx Coronary artery disease. - Chronic atrial fibrillation. - Pradaxa. - Hx Benign prostatic hypertrophy- on flomax - Hx Urethral stricture. - Hx Schizophrenia- stable - Hx Large inguinal scrotal hernia. Further recommendations based on clinical course. Plan of care discussed with Dr. López. Subjective 24 Hr Interval Summary Free Text/Dictation NAD, refusing meds at times. seems comfortable, afebrile, no agitation noted, dw staff. Eyes: no complaints ENT: no complaints Respiratory: no complaints Cardiovascular: no complaints Gastrointestinal: no complaints Exam/Review of Systems Vital Signs Vitals Vital Signs Date Time Temp Pulse Resp B/P Pulse Ox O2 Delivery O2 Flow Rate FiO2 08/10/16 07:45 98.6 18 140/88 96 08/09/16 22:47 88 Intake and Output 08/09/16 08/09/16 08/10/16 15:00 23:00 07:00 Intake Total 1060 ml 480 ml Balance 1060 ml 480 ml Exam Constitutional: alert, well developed Psych: nl mood/affect Eyes: EOMI, PERRL, nl sclera ENMT: nl external ears & nose Respiratory: clear to auscultation Cardiovascular: nl pulses Gastrointestinal: non-tender, soft Musculoskeletal: nl extremities to inspection Extremities: normal pulses Neurological: other (follows simple commands) Lymph: nontender Results Result Diagram: 08/10/1652608/10/16526 Results 24 hrs Laboratory Tests Test 08/10/16 05:27 White Blood Count 4.5 L Red Blood Count 3.45 L Hemoglobin 9.7 L Hematocrit 31.1 L Mean Corpuscular Volume 90.1 Mean Corpuscular Hemoglobin 28.1 L Mean Corpuscular Hemoglobin Concent 31.2 L Red Cell Distribution Width 14.8 H Platelet Count 228 Mean Platelet Volume 10.3 Neutrophils % 58.5 Lymphocytes % 22.9 Monocytes % 13.7 H Eosinophils % 4.3 Basophils % 0.4 Nucleated Red Blood Cells % 0.0 Neutrophils # 2.6 Lymphocytes # 1.0 Monocytes # 0.6 Eosinophils # 0.2 Basophils # 0.0 Nucleated Red Blood Cells # 0.0 Sodium Level 136 Potassium Level 4.2 Chloride Level 103 Carbon Dioxide Level 27 Anion Gap 10 Blood Urea Nitrogen 15 Creatinine 0.84 Glucose Level 89 Calcium Level 8.6 Medications Medications Current Medications Bisacodyl (Dulcolax Supp) 10 mg Q24H PRN [place] CONSTIPATION; Start 08/04/16 at 16: 00 Dabigatran (PRADaxa) 150 mg BID PO Last administered on 08/10/16 09:55; Admin Dose 150 MG; Start 08/04/16 at 21:00 Docusate Sodium (Colace) 100 mg BID PRN PO CONSTIPATION; Start 08/04/16 at 16: 00 Ferrous Sulfate (Ferrous Sulfate (Ec)) 325 mg BID PO Last administered on 09:55; Admin Dose 325 MG; Start 08/04/16 at 21:00 Gabapentin (Neurontin) 100 mg TID PO Last administered on 08/10/16 12:14; Admin Dose 100 MG; Start 08/04/16 at 21:00 Lisinopril (Zestril) 2.5 mg DAILY PO Last administered on 08/10/16 09:56; Admin Dose 2.5 MG; Start 08/05/16 at 09:00 Risperidone (Risperdal) 1.5 mg BID PO Last administered on 08/10/16 09:55; Admin Dose 1.5 MG; Start 08/04/16 at 21:00 Tamsulosin HCl (Flomax) 0.4 mg HS PO Last administered on 08/09/16 23:40; Admin Dose 0.4 MG; Start 08/04/16 at 21:00 Lorazepam 0.5 mg 0.5 mg Q6H PRN IV ANXIETY; Start 08/04/16 at 16:30 Ceftriaxone Sodium (Rocephin) 50 ml @ 100 mls/hr Q24H IVPB Last administered on 08/04/16 16:18; Admin Dose 100 MLS/HR; Start 08/04/16 at 16:30 Acetaminophen (Tylenol Tab) 500 mg Q4H PRN PO PAIN AND OR ELEVATED TEMP; Start 08/04/16 at 16:30 Polyethylene Glycol (Miralax) 17 gm DAILY PRN PO CONSTIPATION; Start 08/09/16 at 16:30 Docusate Sodium (Colace) 100 mg BID PO ; Start 08/09/16 at 21:00 Levofloxacin (Levaquin) 500 mg DAILY@06 PO Last administered on 08/10/16t 06:25 ; Admin Dose 500 MG; Start 08/10/16 at 06:00 PARAG MARIE Aug 10, 2016 18:06
[2016-08-10 19:52] VITALS: BP 124/84; RESP 14
[2016-08-10] MEDS: TAMSULOSIN (SR) 0.4 MG CAP PO SCH (22:20)
[2016-08-11] MEDS: LEVOFLOXACIN 500 MG TAB PO SCH (06:16)
[2016-08-11] MEDS: PANTOPRAZOLE (EC) 40 MG TAB PO SCH (06:18)
[2016-08-11 07:40] VITALS: BP 111/62; RESP 20
[2016-08-11] MEDS: LISINOPRIL 5 MG TAB PO SCH (08:30)
[2016-08-11] MEDS: DABIGATRAN 150 MG CAP PO SCH ×2 (08:30→20:27)
[2016-08-11] MEDS: DOCUSATE SODIUM 100 MG CAP PO SCH ×2 (08:30→20:26)
[2016-08-11] MEDS: FERROUS SULFATE (EC) 325 MG TAB PO SCH ×2 (08:30→20:26)
[2016-08-11] MEDS: GABAPENTIN 100 MG CAP PO SCH ×3 (08:30→20:26)
[2016-08-11] MEDS: RISPERIDONE 1 MG TAB PO SCH ×2 (08:30→20:27)
--- NOTE | 2016-08-11 12:30 | PN ---
Date/Time of Note Date/Time of Note DATE: 08/11/16 TIME: 12:27 Assessment/Plan VTE Prophylaxis VTE Prophylaxis Intervention: SCD's Lines/Catheters IV Catheter Type (from Nrs): NO IV ACCESS Urinary Cath still in place: No Assessment/Plan Chief Complaint/Hosp Course Assessment and plan: - Acute encephalopathy, possibly due to a urinary tract infection, resolving. - UTI per UA, continue Levaquin. - Coronary artery disease. - Chronic atrial fibrillation. Continue Pradaxa. - Benign prostatic hypertrophy. - Urethral stricture. - Bipolar disorder. - Large inguinal scrotal hernia. Continue PT. Further recommendations based on clinical course. Plan of care discussed with Dr. López. Problems: Subjective 24 Hr Interval Summary Free Text/Dictation Patient remained afebrile, no acute events noted, unstable gait, PT evaluation. Exam/Review of Systems Vital Signs Vitals Vital Signs Date Time Temp Pulse Resp B/P Pulse Ox O2 Delivery O2 Flow Rate FiO2 08/11/16 07:40 98.8 80 20 111/62 98 Intake and Output 08/10/16 08/10/16 08/11/16 15:00 23:00 07:00 Intake Total 980 ml 960 ml Balance 980 ml 960 ml Exam Constitutional: alert, oriented Psych: no complaints Head: atraumatic, normocephalic Eyes: nl conjunctiva ENMT: nl external ears & nose Neck: non-tender, supple Respiratory: clear to auscultation, normal air movement Cardiovascular: irregular rhythm Gastrointestinal: non-tender, soft Genitourinary - Male: other (Large inguinal hernia) Musculoskeletal: nl extremities to inspection Extremities: normal pulses 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 Results Result Diagram: 08/10/16 0527 08/10/16 0527 Medications Medications Current Medications Bisacodyl (Dulcolax Supp) 10 mg Q24H PRN [place] CONSTIPATION; Start 08/04/16 at 16: 00 Dabigatran (PRADaxa) 150 mg BID PO Last administered on 08/11/16 08:30; Admin Dose 150 MG; Start 08/04/16 at 21:00 Docusate Sodium (Colace) 100 mg BID PRN PO CONSTIPATION; Start 08/04/16 at 16: 00 Ferrous Sulfate (Ferrous Sulfate (Ec)) 325 mg BID PO Last administered on 08:30; Admin Dose 325 MG; Start 08/04/16 at 21:00 Gabapentin (Neurontin) 100 mg TID PO Last administered on 08/11/16 08:30; Admin Dose 100 MG; Start 08/04/16 at 21:00 Lisinopril (Zestril) 2.5 mg DAILY PO Last administered on 08/11/16 08:30; Admin Dose 2.5 MG; Start 08/05/16 at 09:00 Risperidone (Risperdal) 1.5 mg BID PO Last administered on 08/11/16 08:30; Admin Dose 1.5 MG; Start 08/04/16 at 21:00 Tamsulosin HCl (Flomax) 0.4 mg HS PO Last administered on 08/10/16 22:20; Admin Dose 0.4 MG; Start 08/04/16 at 21:00 Lorazepam 0.5 mg 0.5 mg Q6H PRN IV ANXIETY; Start 08/04/16 at 16:30 Ceftriaxone Sodium (Rocephin) 50 ml @ 100 mls/hr Q24H IVPB Last administered on 08/04/16 16:18; Admin Dose 100 MLS/HR; Start 08/04/16 at 16:30 Acetaminophen (Tylenol Tab) 500 mg Q4H PRN PO PAIN AND OR ELEVATED TEMP; Start 08/04/16 at 16:30 Polyethylene Glycol (Miralax) 17 gm DAILY PRN PO CONSTIPATION; Start 08/09/16 at 16:30 Docusate Sodium (Colace) 100 mg BID PO Last administered on 08/11/16 08:30; Admin Dose 100 MG; Start 08/09/16 at 21:00 Levofloxacin (Levaquin) 500 mg DAILY@06 PO Last administered on 08/11/16 06:16 ; Admin Dose 500 MG; Start 08/10/16 at 06:00 SONU MCCAIN Aug 11, 2016 12:30
[2016-08-11] MEDS: CEFTRIAXONE 1 GM/50 ML (PMX) 50 ML IVPB SCH (15:47)
[2016-08-11] MEDS: TAMSULOSIN (SR) 0.4 MG CAP PO SCH (20:26)
[2016-08-12] MEDS: LEVOFLOXACIN 500 MG TAB PO SCH (06:46)
[2016-08-12 07:05] VITALS: BP 125/82; RESP 18
[2016-08-12] MEDS: PANTOPRAZOLE (EC) 40 MG TAB PO SCH (08:09)
[2016-08-12] MEDS: DOCUSATE SODIUM 100 MG CAP PO SCH (08:09)
[2016-08-12] MEDS: DABIGATRAN 150 MG CAP PO SCH (08:10)
[2016-08-12] MEDS: LISINOPRIL 5 MG TAB PO SCH (08:10)
[2016-08-12] MEDS: FERROUS SULFATE (EC) 325 MG TAB PO SCH (08:10)
[2016-08-12] MEDS: GABAPENTIN 100 MG CAP PO SCH ×2 (08:10→12:13)
[2016-08-12] MEDS: RISPERIDONE 1 MG TAB PO SCH (08:10)
[2016-08-12] MEDS: CEFTRIAXONE 1 GM/50 ML (PMX) 50 ML IVPB SCH (15:33)
--- NOTE | 2016-08-12 17:11 | PDOCDIS ---
Discharge Instructions CONDITION Patient Condition: Stable HOME CARE INSTRUCTIONS: Special Diet: MECHANICAL SOFT ACTIVITY: Activity Restrictions: Slowly Increase Activity Rest between Activity Avoid heavy lifting Do not operate Machinery Do not operate Power Tool Avoid Heavy Housework Bathing Restrictions: Sponge Bath FOLLOW UP/APPOINTMENTS Appointments FU with PMD x 1 week Call 911 or go to hospital if symptoms get worse.alessandro staff/dr López. PARAG MARIE Aug 12, 2016 17:11
--- NOTE | 2016-08-12 17:28 | DS ---
Date/Time of Note Date/Time of Note DATE: 08/12/16 TIME: 17:28 Discharge Summary Admission/Discharge Info Admit Date/Time Aug 04, 2016 at 12:41 Discharge Date/Time Hospital Course Assessment and plan: - Acute encephalopathy, possibly due to a urinary tract infection, resolving. - UTI per UA, continue Levaquin. - Coronary artery disease. - Chronic atrial fibrillation. Continue Pradaxa. - Benign prostatic hypertrophy. - Urethral stricture. - Bipolar disorder. - Large inguinal scrotal hernia. Continue PT. Further recommendations based on clinical course. Plan of care discussed with Dr. López. Home Meds Reported Medications Polysaccharide Iron Complex* (NIFEREX-150*) 1 Cap Cap, 1 CAP PO BID, CAP 08/04/16 Gabapentin* (Neurontin*) 100 Mg Capsule, 100 MG PO TID, CAP 08/04/16 Furosemide* (Furosemide*) 20 Mg Tablet, 20 MG PO DAILY, TAB 08/04/16 Bisacodyl* (Bisacodyl*) 10 Mg Supp, 10 MG [place] Q24H Y for CONSTIPATION, SUPP 08/04/16 Lisinopril* (Lisinopril*) 2.5 Mg Tablet, 2.5 MG PO DAILY, TAB HOLD IF SBP<110 OR HR<60 03/20/16 Risperidone* (Risperdal*) 1 Mg Tablet, 1.5 MG PO BID, TAB 08/31/15 Pantoprazole* (Protonix*) 40 Mg Tablet.dr, 40 MG PO AC BREAKFAST, TAB 08/31/15 Dabigatran Etexilate Mesylate* (Pradaxa*) 150 Mg Capsule, 150 MG PO BID, CAP 08/31/15 Potassium Chloride* (Potassium Chloride*) 20 Meq Tablet.er, 20 MEQ PO DAILY, TAB.SA 08/31/15 Tamsulosin Hcl* (Flomax*) 0.4 Mg Cap.er.24h, 0.4 MG PO HS, CAP 08/31/15 Ferrous Sulfate* (Ferrous Sulfate*) 325 Mg Tabec, 325 MG PO BID, TAB 08/31/15 Docusate Sodium* (Colace*) 100 Mg Capsule, 100 MG PO BID Y for CONSTIPATION, CAP 08/31/15 PARAG MARIE Aug 12, 2016 17:28
[2016-08-12 20:00] VITALS: BP 134/74; RESP 19
== END 2016-08-12 20:12 | DRG 690 ==
LOC: E/R 10:19 → PP2 12:41
PROVIDERS: ADMIT Internal Medicine; ATTEND Internal Medicine
DX: N39.0 Urinary tract infection, site not specified (principal); G94 Other disorders of brain in diseases classified elsewhere; I11.0 Hypertensive heart disease with heart failure; I50.32 Chronic diastolic (congestive) heart failure; E87.1 Hypo-osmolality and hyponatremia; I25.10 Atherosclerotic heart disease of native coronary artery without angina pectoris; I48.2 Chronic atrial fibrillation; N40.0 Benign prostatic hyperplasia without lower urinary tract symptoms; N13.5 Crossing vessel and stricture of ureter without hydronephrosis; F31.9 Bipolar disorder, unspecified; R91.8 Other nonspecific abnormal finding of lung field; K40.90 Unilateral inguinal hernia, without obstruction or gangrene, not specified as recurrent; Z79.01 Long term (current) use of anticoagulants
CPT/HCPCS: 36415; 71010; 71250; 80048; 80053; 81001; 81003; 82270; 83690; 83880; 84484; 85025; 87081; 93005; 96374; J0692; J0696